=== PATIENT | male | born 1985 ===

== ENCOUNTER 2021-09-05 03:06 | Day surgery (SDC) | payer MEDICARE, MEDICAID ==
[2021-09-05] MEDS ORDERED: Sodium Chloride 0.9% 1,000 ML IV SCH (06:00)
[2021-09-05] MEDS ORDERED: fentaNYL 250 MCG/5 ML SDV ONE (06:35)
[2021-09-05] MEDS ORDERED: Propofol 200 MG/20 ML SDV ONE (06:35)
[2021-09-05] MEDS ORDERED: Midazolam 1 MG/ML 2 ML SDV ONE (06:35)
[2021-09-05] MEDS ORDERED: Sugammadex Sodium 200 MG/2 ML VIAL ONE (06:36)
[2021-09-05] MEDS ORDERED: Lidocaine 1% 5 ML VIAL ONE (06:36)
[2021-09-05] MEDS ORDERED: Ondansetron 4 MG/2 ML SDV ONE (06:36)
[2021-09-05] MEDS ORDERED: Rocuronium 50 MG/5 ML Vial ONE (06:36)
[2021-09-05] MEDS ORDERED: Dexamethasone 4 MG/ML 5 ML MDV ONE (06:36)
[2021-09-05] MEDS ORDERED: Bupivacaine 0.5%/EPINEPHrine 1:200,000 50 ML MDV ONE (06:39)
[2021-09-05] MEDS ORDERED: HYDROmorphone 0.5 MG/0.5 ML Syringe IVPUSH PRN (07:40)
[2021-09-05] MEDS ORDERED: fentaNYL 100 MCG/2 ML SDV IVPUSH PRN (07:40)
[2021-09-05] MEDS ORDERED: Ondansetron 4 MG/2 ML SDV IVPUSH PRN (07:40)
== END 2021-09-05 08:38 | disposition home or self-care (01) ==
LOC: JD.ED 03:06 → JD.SDS 06:33
PROVIDERS: ATTEND Surgery
DX: L05.01 Pilonidal cyst with abscess (principal); Q05.9 Spina bifida, unspecified; D64.9 Anemia, unspecified; Z88.0 Allergy status to penicillin; Z88.2 Allergy status to sulfonamides; Z88.1 Allergy status to other antibiotic agents; Z98.890 Other specified postprocedural states; Z79.899 Other long term (current) drug therapy
CPT/HCPCS: 10060; 36415; 72193; 80053; 85025; 87070; 87205; J1100; J2250; J2405; J2704; J3010; J3490; J7030; 00300; 96360; 99284-25

== ENCOUNTER 2021-10-15 09:06 | Emergency (ER) | payer MEDICARE, MEDICAID ==
[2021-10-15] MEDS ORDERED: Metoclopramide 10 MG/2 ML SDV IVPUSH ONE (09:29)
[2021-10-15] MEDS ORDERED: Magnesium Sulfate/Water 2 GM in Premix Bag 1 BAG IV ONE (09:30)
[2021-10-15] MEDS ORDERED: Lactated Ringers 1,000 ML IV SCH (09:30)
== END 2021-10-15 10:11 | disposition home or self-care (01) ==
LOC: JD.ED 09:06
DX: Z48.01 Encounter for change or removal of surgical wound dressing (principal); Z88.0 Allergy status to penicillin; Z88.2 Allergy status to sulfonamides
CPT/HCPCS: 99282